=== PATIENT | female | born 1985 | race Caucasian/White ===

== ENCOUNTER 2020-07-15 10:47 | Day surgery (SDC) | payer OTHER ==
[2020-07-15 11:31] VITALS: BMI 30.5
[2020-07-15] MEDS ORDERED: hydrALAZINE 20 MG/ML VIAL SLOW IVP PRN (12:07)
== END 2020-07-15 13:49 | disposition home health service (06) ==
LOC: CSHLD/OP 10:47
PROVIDERS: ATTEND Obstetrics & Gynecology
DX: O47.1 False labor at or after 37 completed weeks of gestation (principal); O09.523 Supervision of elderly multigravida, third trimester; Z3A.39 39 weeks gestation of pregnancy
CPT/HCPCS: 99282

== ENCOUNTER 2020-07-22 09:04 | Outpatient (CLI) | payer OTHER ==
[2020-07-23 01:47] LABS: SARS-CoV-2 PCR by NAA Not Detected (NotDetected)
== END 2020-07-22 09:05 | disposition home or self-care (01) ==
LOC: CSHLAB 09:04
PROVIDERS: ATTEND Obstetrics & Gynecology
DX: Z20.822 Contact with and (suspected) exposure to COVID-19 (principal)
CPT/HCPCS: 87635; U0003; U0005

== ENCOUNTER 2020-07-24 11:28 | Inpatient (IN) | payer OTHER ==
[2020-07-24] MEDS ORDERED: Carboprost 250 MCG/ML AMP IM PRN (12:23)
[2020-07-24] MEDS ORDERED: Ondansetron PF 4 MG/2 ML Vial IVP PRN ×2 (12:23→23:40)
[2020-07-24] MEDS ORDERED: Methylergonovine 0.2 MG/ML VIAL IM PRN (12:23)
[2020-07-24] MEDS ORDERED: Promethazine HCl 25 MG/ML VIAL IM PRN (12:23)
[2020-07-24] MEDS ORDERED: Lidocaine 1% (PF) 30 ML VIAL SC PRN (12:23)
[2020-07-24] MEDS ORDERED: Misoprostol 200 MCG TAB PR PRN (12:23)
[2020-07-24] MEDS ORDERED: hydrALAZINE 20 MG/ML VIAL SLOW IVP PRN ×2 (12:23→23:40)
[2020-07-24] MEDS ORDERED: Acetaminophen 500 MG TAB PO PRN (12:23)
[2020-07-24] MEDS ORDERED: Ibuprofen 800 MG TAB PO PRN (12:23)
[2020-07-24] MEDS ORDERED: Diphenoxylate HCl/Atropine Tablet PO PRN (12:23)
[2020-07-24] MEDS ORDERED: Lactated Ringer's 1,000 ML IV SCH (12:30)
[2020-07-24 13:56] LABS: Hemoglobin 12.3 g/dL (12.0-15.5); Mean Corpuscular HGB CONC 33.1 g/dL (32.0-36.0); Mean Corpuscular Hemoglobin 30.1 pg (27.0-33.0); Mean Corpuscular Volume 91.2 fl (81.6-98.3); Mean Platelet Volume 12.2 fl (7.4-10.4); Platelet Count 148 10x3/uL (150-450); RBC Distribution Width 14.1 % (11.5-14.5); Red Blood Cell (RBC) Count 4.08 10x6/uL (3.90-5.03)
[2020-07-24] MEDS ORDERED: Fentanyl 4 mcg/Bup 0.1% Cadd 100 ML ONE (14:39)
[2020-07-24 15:32] VITALS: BMI 31.3
[2020-07-24] MEDS: NS w/ Oxytocin 30 units 1,000 ML IV PRN ×2 (17:49→21:03)
[2020-07-24 18:17] LABS: Hep B Surf Ag Non-Reactive S/CO (NonReactive); Syphilis Antibody Nonreactive (Nonreactive); Syphilis Antibody Index 0.02 S/CO (<1.00 Non-Reactive)
[2020-07-24 18:45] LABS: HBSAg Index 0.14 S/CO (0-0.99)
[2020-07-24] MEDS ORDERED: Milk Of Magnesia 30 ML UDCUP PO PRN (23:40)
[2020-07-24] MEDS ORDERED: Benzocaine-Menthol 82.5 ML CAN TOP PRN (23:40)
[2020-07-24] MEDS ORDERED: Bisacodyl 10 MG SUPP PR PRN (23:40)
[2020-07-24] MEDS ORDERED: HYDROcodone/Acetaminophen 5/325 mg Tablet PO PRN ×2 (23:40)
[2020-07-24] MEDS ORDERED: NS w/ Oxytocin 30 units 500 ML IV SCH (23:45)
[2020-07-25] MEDS: Ibuprofen 800 MG TAB PO SCH ×4 (04:02→22:08)
[2020-07-25] MEDS: Docusate Calcium (SURFAK) 240 MG CAP PO SCH ×3 (08:40→22:00)
[2020-07-25] MEDS: Ferrous Sulfate 325 MG TAB PO SCH ×2 (08:41→16:38)
[2020-07-25] MEDS ORDERED: Adacel (T-DAP) 0.5 ML SYRINGE IM ONE (09:00)
[2020-07-25] MEDS: Prenatal Vitamin 1 TAB PO SCH (12:20)
[2020-07-26] MEDS: Ibuprofen 800 MG TAB PO SCH (05:10)
[2020-07-26] MEDS: Prenatal Vitamin 1 TAB PO SCH (08:18)
[2020-07-26 08:53] VITALS: BP 109/73; TEMP 98.1
[2020-07-26] MEDS: Ferrous Sulfate 325 MG TAB PO SCH (09:56)
[2020-07-26] MEDS: Docusate Calcium (SURFAK) 240 MG CAP PO SCH (09:57)
== END 2020-07-26 11:44 | disposition home or self-care (01) | DRG 807 ==
LOC: CSHLD/OP 11:28 → CSHLD 11:30 → CSHPP 23:09
PROVIDERS: ADMIT Obstetrics & Gynecology; ATTEND Obstetrics & Gynecology
PROC: 10E0XZZ Delivery of Products of Conception, External Approach (ICD-10-PCS; principal; 2020-07-24)
PROC: 10907ZC Drainage of Amniotic Fluid, Therapeutic from Products of Conception, Via Natural or Artificial Opening (ICD-10-PCS; 2020-07-24)
DX: O48.0 Post-term pregnancy (principal); Z37.0 Single live birth; Z3A.40 40 weeks gestation of pregnancy; Z20.822 Contact with and (suspected) exposure to COVID-19; O99.344 Other mental disorders complicating childbirth; F41.9 Anxiety disorder, unspecified
CPT/HCPCS: 51702; 85027; 86780; 86850; 86900; 86901; 87340; 87635; 99285; J2405; J2590; U0003; U0005